=== PATIENT | female | born 1930 | race Caucasian/White ===

== ENCOUNTER 2018-10-19 20:18 | Inpatient (IN) | payer MEDICARE, OTHER ==
[2018-10-19 21:20] LABS: WHITE BLOOD COUNT 28.9 10^3/ul (4.8-10.8)
[2018-10-19 21:20] LABS: ABNORMAL IP MESSAGE 1; HEMATOCRIT 37.7 % (37.0-47.0); HEMOGLOBIN 12.4 g/dl (12.0-16.0); MEAN CORPUSCULAR HEMOGLOBIN 29.1 pg (29.0-33.0); MEAN CORPUSCULAR HGB CONC 32.9 g/dl (32.0-37.0); MEAN CORPUSCULAR VOLUME 88.5 fl (82.0-101.0); MEAN PLATELET VOLUME 9.4 fl (7.4-10.4); PLATELET COUNT 447 10^3/UL (140-415); RED BLOOD COUNT 4.26 10^6/ul (4.20-5.40); RED CELL DISTRIBUTION WIDTH 14.5 % (11.5-14.5)
[2018-10-19] MEDS: SODIUM CHLORIDE 0.9% 1L BAG IV* (21:25)
[2018-10-19] MEDS: CEFTRIAXONE 1 GM/50 ML (PMX) 50 ML IVPB (21:26)
[2018-10-19 21:35] LABS: ADD MAN DIFF? YES; PATH REVIEW? YES; POSITIVE DIFF @See below
[2018-10-19 21:38] LABS: INR 1.14; PROTIME 14.7 Sec (11.9-14.9); PT RATIO 1.1
[2018-10-19 21:39] LABS: PARTIAL THROMBOPLASTIN TIME 38.3 Sec (23.0-35.0)
[2018-10-19 21:41] LABS: ALBUMIN 3.6 g/dl (3.3-4.9); ALKALINE PHOSPHATASE 147 IU/L (42-121); ANION GAP 13 (5-13); ASPARTATE AMINO TRANSFERASE 19 IU/L (15-46); BILIRUBIN,INDIRECT 0.5 mg/dl (0-1.1); BILIRUBIN,TOTAL 0.5 mg/dl (0.2-1.3); BLOOD UREA NITROGEN 22 mg/dl (7-20); CARBON DIOXIDE 24 mmol/L (21-31); CHLORIDE 104 mmol/L (97-110); CREATININE 0.98 mg/dl (0.44-1.00); GLUCOSE 141 mg/dl (70-220); POTASSIUM 4.3 mmol/L (3.5-5.1); SODIUM 141 mmol/L (135-144); TOTAL PROTEIN 7.6 g/dl (6.1-8.1)
[2018-10-19] MEDS: morphine 2 MG INJ IV (21:42)
[2018-10-19] MEDS: AZITHROMYCIN 500MG/NS (PMX) 250 ML IV (21:43)
[2018-10-19 21:48] LABS: ALANINE AMINOTRANSFERASE < 6 IU/L (13-69)
[2018-10-19 21:51] LABS: B-TYPE NATRIURETIC PEPTIDE 1300 PG/ML (0-450)
[2018-10-19 21:57] LABS: ADD UMIC YES; UR ASCORBIC ACID 40 mg/dL (NEGATIVE); UR BACTERIA FEW /HPF (NONE SEEN); UR BILIRUBIN (Dip) NEGATIVE (NEGATIVE); UR BLOOD (Dip) NEGATIVE (NEGATIVE); UR CLARITY TURBID (CLEAR); UR COLOR YELLOW (YELLOW); UR GLUCOSE (Dip) NEGATIVE (NEGATIVE); UR KETONES (Dip) TRACE mg/dL (NEGATIVE); UR LEUKOCYTE ESTERASE (Dip) 2+ Leu/ul (NEGATIVE); UR MUCUS MANY /HPF (NONE SEEN); UR NITRITE (Dip) NEGATIVE (NEGATIVE); UR RBC 3 /HPF (0-5); UR SPECIFIC GRAVITY (Dip) 1.035 (1.003-1.030); UR TOTAL PROTEIN (Dip) 2+ mg/dl (NEGATIVE); UR UROBILINOGEN (Dip) NEGATIVE (NEGATIVE); UR WBC > 182 /HPF (0-5)
[2018-10-19 22:17] LABS: ANISOCYTOSIS 1+ (0-0); BAND NEUTROPHILS % (M) 7 % (0-4); LYMPHOCYTES #M 1.7 10^3/ul (0.8-2.9); LYMPHOCYTES % (M) 6 % (15-51); MONOCYTE #M 1.7 10^3/ul (0.3-0.9); MONOCYTES % (M) 6 % (0-11); SEGMENTED NEUTROPHILS (M) % 81 % (39-77); SMUDGE%M 5 % (0-0)
[2018-10-19 23:36] LABS: LACTIC ACID 1.7 mmol/L (0.5-2.0)
[2018-10-20] MEDS ORDERED: ONDANSETRON 4 MG INJ IV ×2 (00:30→02:00)
[2018-10-20] MEDS ORDERED: ACETAMINOPHEN 325 MG TAB PO ×2 (00:30→02:00)
[2018-10-20 00:51] LABS: LACTIC ACID 1.1 mmol/L (0.5-2.0)
[2018-10-20] MEDS: SOD CHLORIDE 0.9% 1,000 ML IV ×2 (01:51→15:12)
[2018-10-20] MEDS: SOD CHLORIDE 0.9% 250 ML IV (01:54)
[2018-10-20] MEDS ORDERED: VANCOMYCIN IV PER PHARMACY XX (02:00)
[2018-10-20] MEDS ORDERED: ALBUTEROL/IPRATROPIUM (NEB) 3 ML AMP HHN (02:00)
[2018-10-20] MEDS ORDERED: NACL 0.9% 3 ML SYG IV (02:00)
[2018-10-20] MEDS: VANCOMYCIN 1 GM in 250 ML IVPB (03:37)
[2018-10-20 06:44] LABS: ADD MAN DIFF? NO
[2018-10-20 06:48] LABS: WHITE BLOOD COUNT 19.4 10^3/ul (4.8-10.8)
[2018-10-20 06:48] LABS: BASOPHILS % 0.2 % (0.0-2.0); EOSINOPHILS % 0.1 % (0.0-7.0); LYMPHOCYTES # 1.7 10^3/ul (0.8-2.9); LYMPHOCYTES % 8.6 % (15.0-51.0); MEAN CORPUSCULAR HEMOGLOBIN 28.7 pg (29.0-33.0); MEAN CORPUSCULAR HGB CONC 31.3 g/dl (32.0-37.0); MEAN PLATELET VOLUME 9.7 fl (7.4-10.4); MONOCYTE # 1.1 10^3/ul (0.3-0.9); MONOCYTES % 5.7 % (0.0-11.0); NEUTROPHIL # 16.4 10^3/ul (1.6-7.5); NEUTROPHILS % 84.7 % (39.0-77.0); PLATELET COUNT 307 10^3/UL (140-415); RED BLOOD COUNT 3.48 10^6/ul (4.20-5.40); RED CELL DISTRIBUTION WIDTH 14.6 % (11.5-14.5)
[2018-10-20 07:14] LABS: ALANINE AMINOTRANSFERASE 17 IU/L (13-69); ALBUMIN 2.6 g/dl (3.3-4.9); ALBUMIN/GLOBULIN RATIO 0.86; ALKALINE PHOSPHATASE 98 IU/L (42-121); ANION GAP 4 (5-13); ASPARTATE AMINO TRANSFERASE 16 IU/L (15-46); BILIRUBIN,INDIRECT 0.3 mg/dl (0-1.1); BILIRUBIN,TOTAL 0.3 mg/dl (0.2-1.3); BLOOD UREA NITROGEN 21 mg/dl (7-20); CALCIUM 7.9 mg/dl (8.4-10.2); CARBON DIOXIDE 28 mmol/L (21-31); CHLORIDE 111 mmol/L (97-110); CHOL/HDL RATIO 4.6 RATIO; CHOLESTEROL 93 mg/dl (100-200); CREATININE 0.79 mg/dl (0.44-1.00); GLUCOSE 98 mg/dl (70-220); HDL CHOLESTEROL 20 mg/dl (33-92); LDL CHOLESTEROL,CALCULATED 57 mg/dl; POTASSIUM 4.1 mmol/L (3.5-5.1); SODIUM 143 mmol/L (135-144); TOTAL PROTEIN 5.6 g/dl (6.1-8.1); TRIGLYCERIDES 82 mg/dl (0-149)
[2018-10-20] MEDS: clonAZEPAM 0.5 MG TAB PO ×2 (09:00→21:00)
[2018-10-20] MEDS: ESCITALOPRAM 10 MG TAB PO (09:00)
[2018-10-20] MEDS: HEPARIN 5,000 UNIT/1 ML VIAL SC ×2 (11:16→21:00)
[2018-10-20] MEDS: FUROSEMIDE 40 MG INJ IV (17:10)
[2018-10-20] MEDS: BALSAM PERU/CASTOR OIL 60 GM TUBE TOP (20:53)
[2018-10-20] MEDS: ACETAMINOPHEN 650 MG SUPP PR (20:54)
[2018-10-20] MEDS: MIRTAZAPINE 15 MG TAB PO (21:00)
[2018-10-20] MEDS ORDERED: NON-FORMULARY/PATIENT OWN MED (Lovastatin 40 MG) PO (21:00)
[2018-10-20] MEDS: ATORVASTATIN 10 MG TAB PO (21:00)
[2018-10-20] MEDS: OLANZAPINE 5 MG TAB PO (21:00)
[2018-10-21] MEDS: IPRATROPIUM (NEB) 0.5 MG/2.5 ML AMP HHN ×4 (01:02→21:27)
[2018-10-21] MEDS: VANCOMYCIN 750 MG (PMX) 250 ML IVPB (01:55)
[2018-10-21 06:04] LABS: ADD MAN DIFF? NO
[2018-10-21 06:07] LABS: BASOPHILS % 0.2 % (0.0-2.0); EOSINOPHILS # 0.1 10^3/ul (0.0-0.5); EOSINOPHILS % 0.6 % (0.0-7.0); HEMATOCRIT 31.7 % (37.0-47.0); HEMOGLOBIN 9.9 g/dl (12.0-16.0); LYMPHOCYTES # 1.3 10^3/ul (0.8-2.9); MEAN CORPUSCULAR HEMOGLOBIN 28.6 pg (29.0-33.0); MEAN CORPUSCULAR HGB CONC 31.2 g/dl (32.0-37.0); MEAN CORPUSCULAR VOLUME 91.6 fl (82.0-101.0); MEAN PLATELET VOLUME 9.5 fl (7.4-10.4); MONOCYTE # 1.1 10^3/ul (0.3-0.9); MONOCYTES % 6.1 % (0.0-11.0); NEUTROPHIL # 15.5 10^3/ul (1.6-7.5); NEUTROPHILS % 85.3 % (39.0-77.0); PLATELET COUNT 309 10^3/UL (140-415); RED BLOOD COUNT 3.46 10^6/ul (4.20-5.40); RED CELL DISTRIBUTION WIDTH 14.6 % (11.5-14.5)
[2018-10-21 06:07] LABS: WHITE BLOOD COUNT 18.1 10^3/ul (4.8-10.8)
[2018-10-21] MEDS: SOD CHLORIDE 0.9% 1,000 ML IV (06:20)
[2018-10-21 06:40] LABS: ANION GAP 5 (5-13); BLOOD UREA NITROGEN 19 mg/dl (7-20); CALCIUM 7.9 mg/dl (8.4-10.2); CARBON DIOXIDE 29 mmol/L (21-31); CHLORIDE 112 mmol/L (97-110); CREATININE 0.69 mg/dl (0.44-1.00); GLUCOSE 90 mg/dl (70-220); MAGNESIUM 2.2 mg/dl (1.7-2.5); PHOSPHORUS 4.4 mg/dl (2.5-4.9); POTASSIUM 3.6 mmol/L (3.5-5.1); SODIUM 146 mmol/L (135-144)
[2018-10-21] MEDS: ESCITALOPRAM 10 MG TAB PO (09:00)
[2018-10-21] MEDS: HEPARIN 5,000 UNIT/1 ML VIAL SC (09:00)
[2018-10-21] MEDS: BALSAM PERU/CASTOR OIL 60 GM TUBE TOP (09:22)
[2018-10-21] MEDS: D5W-0.45 NACL + KCL 20 MEQ 1,000 ML IV (12:25)
[2018-10-21] MEDS: PIPER-TAZO 3.375 GM IV (PMX) 100 ML IVPB ×2 (14:26→20:54)
[2018-10-21] MEDS: ACETAMINOPHEN 650 MG SUPP PR (20:17)
[2018-10-21] MEDS: ATORVASTATIN 10 MG TAB PO (20:41)
[2018-10-21] MEDS: MIRTAZAPINE 15 MG TAB PO (20:42)
[2018-10-22] MEDS: IPRATROPIUM (NEB) 0.5 MG/2.5 ML AMP HHN ×4 (02:18→20:41)
[2018-10-22] MEDS: VANCOMYCIN 750 MG (PMX) 250 ML IVPB (02:29)
[2018-10-22] MEDS: LORAZEPAM 2 MG INJ IV (04:30)
[2018-10-22] MEDS: HALOPERIDOL 5 MG INJ IM (04:38)
[2018-10-22] MEDS: PIPER-TAZO 3.375 GM IV (PMX) 100 ML IVPB ×3 (05:40→21:16)
[2018-10-22 06:00] LABS: ADD MAN DIFF? NO
[2018-10-22 06:11] LABS: ABNORMAL IP MESSAGE 1; BASOPHILS % 0.2 % (0.0-2.0); EOSINOPHILS # 0.1 10^3/ul (0.0-0.5); EOSINOPHILS % 0.3 % (0.0-7.0); HEMATOCRIT 31.7 % (37.0-47.0); HEMOGLOBIN 10.3 g/dl (12.0-16.0); LYMPHOCYTES # 1.1 10^3/ul (0.8-2.9); LYMPHOCYTES % 4.7 % (15.0-51.0); MEAN CORPUSCULAR HEMOGLOBIN 28.8 pg (29.0-33.0); MEAN CORPUSCULAR HGB CONC 32.5 g/dl (32.0-37.0); MEAN CORPUSCULAR VOLUME 88.5 fl (82.0-101.0); MEAN PLATELET VOLUME 9.2 fl (7.4-10.4); MONOCYTE # 1.2 10^3/ul (0.3-0.9); MONOCYTES % 5.1 % (0.0-11.0); NEUTROPHIL # 20.6 10^3/ul (1.6-7.5); NEUTROPHILS % 88.2 % (39.0-77.0); NUCLEATED RED BLOOD CELLS% 0.1 /100WBC (0.0-0.0); PLATELET COUNT 374 10^3/UL (140-415); RED BLOOD COUNT 3.58 10^6/ul (4.20-5.40); RED CELL DISTRIBUTION WIDTH 14.6 % (11.5-14.5)
[2018-10-22 06:11] LABS: WHITE BLOOD COUNT 23.4 10^3/ul (4.8-10.8)
[2018-10-22 06:13] LABS: POSITIVE DIFF @See below
[2018-10-22 06:32] LABS: INR 1.22; PROTIME 15.5 Sec (11.9-14.9); PT RATIO 1.2
[2018-10-22 06:55] LABS: ALANINE AMINOTRANSFERASE 10 IU/L (13-69); ALBUMIN 2.8 g/dl (3.3-4.9); ALKALINE PHOSPHATASE 118 IU/L (42-121); ANION GAP 6 (5-13); ASPARTATE AMINO TRANSFERASE 24 IU/L (15-46); BILIRUBIN,INDIRECT 0.4 mg/dl (0-1.1); BILIRUBIN,TOTAL 0.4 mg/dl (0.2-1.3); BLOOD UREA NITROGEN 13 mg/dl (7-20); CALCIUM 8.2 mg/dl (8.4-10.2); CARBON DIOXIDE 29 mmol/L (21-31); CHLORIDE 114 mmol/L (97-110); CREATININE 0.61 mg/dl (0.44-1.00); GLUCOSE 122 mg/dl (70-220); MAGNESIUM 2.3 mg/dl (1.7-2.5); PHOSPHORUS 2.8 mg/dl (2.5-4.9); POTASSIUM 3.1 mmol/L (3.5-5.1); SODIUM 149 mmol/L (135-144); TOTAL PROTEIN 5.9 g/dl (6.1-8.1)
[2018-10-22] MEDS: D5W-0.45 NACL + KCL 20 MEQ 1,000 ML IV ×2 (07:30→15:25)
[2018-10-22] MEDS: FAMOTIDINE 20 MG INJ IV ×2 (08:49→20:53)
[2018-10-22] MEDS: ESCITALOPRAM 10 MG TAB PO (08:49)
[2018-10-22] MEDS: BALSAM PERU/CASTOR OIL 60 GM TUBE TOP (08:50)
[2018-10-22] MEDS: HEPARIN 5,000 UNIT/1 ML VIAL SC ×2 (09:03→21:07)
[2018-10-22] MEDS: CLONIDINE 0.2 MG/24 HR PATCH TRANSDERM (16:07)
[2018-10-22] MEDS: ENALAPRILAT 1.25 MG INJ IV (20:53)
[2018-10-22] MEDS: ATORVASTATIN 10 MG TAB PO (21:00)
[2018-10-22] MEDS: MIRTAZAPINE 15 MG TAB PO (21:00)
[2018-10-22] MEDS: OLANZAPINE 5 MG TAB PO (21:00)
[2018-10-23] MEDS: IPRATROPIUM (NEB) 0.5 MG/2.5 ML AMP HHN ×4 (01:38→20:33)
[2018-10-23 01:52] LABS: VANCOMYCIN,TROUGH 5.5 ug/ml (10.0-20.0)
[2018-10-23] MEDS: VANCOMYCIN 750 MG (PMX) 250 ML IVPB ×2 (02:25→15:14)
[2018-10-23] MEDS: D5W-0.45 NACL + KCL 20 MEQ 1,000 ML IV ×2 (03:30→22:27)
[2018-10-23] MEDS: PIPER-TAZO 3.375 GM IV (PMX) 100 ML IVPB ×3 (05:37→22:29)
[2018-10-23 08:43] LABS: ADD MAN DIFF? NO
[2018-10-23 08:48] LABS: ABNORMAL IP MESSAGE 1; BASOPHIL # 0.1 10^3/ul (0.0-0.1); BASOPHILS % 0.2 % (0.0-2.0); HEMATOCRIT 29.8 % (37.0-47.0); HEMOGLOBIN 9.5 g/dl (12.0-16.0); LYMPHOCYTES # 1.1 10^3/ul (0.8-2.9); LYMPHOCYTES % 4.6 % (15.0-51.0); MEAN CORPUSCULAR HEMOGLOBIN 29.1 pg (29.0-33.0); MEAN CORPUSCULAR HGB CONC 31.9 g/dl (32.0-37.0); MEAN CORPUSCULAR VOLUME 91.1 fl (82.0-101.0); MEAN PLATELET VOLUME 9.8 fl (7.4-10.4); MONOCYTE # 1.2 10^3/ul (0.3-0.9); MONOCYTES % 5.1 % (0.0-11.0); NEUTROPHIL # 20.9 10^3/ul (1.6-7.5); NEUTROPHILS % 89.2 % (39.0-77.0); PLATELET COUNT 333 10^3/UL (140-415); RED BLOOD COUNT 3.27 10^6/ul (4.20-5.40); RED CELL DISTRIBUTION WIDTH 14.9 % (11.5-14.5)
[2018-10-23 08:48] LABS: WHITE BLOOD COUNT 23.4 10^3/ul (4.8-10.8)
[2018-10-23 08:58] LABS: POSITIVE DIFF @See below
[2018-10-23] MEDS: ESCITALOPRAM 10 MG TAB PO (09:00)
[2018-10-23 09:06] LABS: ALANINE AMINOTRANSFERASE 12 IU/L (13-69); ALBUMIN 2.5 g/dl (3.3-4.9); ALBUMIN/GLOBULIN RATIO 0.78; ALKALINE PHOSPHATASE 118 IU/L (42-121); ANION GAP 3 (5-13); ASPARTATE AMINO TRANSFERASE 19 IU/L (15-46); BILIRUBIN,INDIRECT 0.4 mg/dl (0-1.1); BILIRUBIN,TOTAL 0.4 mg/dl (0.2-1.3); BLOOD UREA NITROGEN 13 mg/dl (7-20); CALCIUM 7.9 mg/dl (8.4-10.2); CARBON DIOXIDE 31 mmol/L (21-31); CHLORIDE 116 mmol/L (97-110); CREATININE 0.64 mg/dl (0.44-1.00); GLUCOSE 130 mg/dl (70-220); MAGNESIUM 2.3 mg/dl (1.7-2.5); POTASSIUM 3.4 mmol/L (3.5-5.1); SODIUM 150 mmol/L (135-144); TOTAL PROTEIN 5.7 g/dl (6.1-8.1)
[2018-10-23] MEDS: FAMOTIDINE 20 MG INJ IV ×2 (09:09→20:19)
[2018-10-23] MEDS: BALSAM PERU/CASTOR OIL 60 GM TUBE TOP (09:09)
[2018-10-23] MEDS: HEPARIN 5,000 UNIT/1 ML VIAL SC ×2 (09:11→20:49)
[2018-10-23] MEDS: ACETAMINOPHEN 650 MG SUPP PR (20:14)
[2018-10-23] MEDS: ENALAPRILAT 1.25 MG INJ IV (20:19)
[2018-10-23] MEDS: ATORVASTATIN 10 MG TAB PO (21:00)
[2018-10-23] MEDS: MIRTAZAPINE 15 MG TAB PO (21:00)
[2018-10-23] MEDS: OLANZAPINE 5 MG TAB PO (21:00)
[2018-10-24] MEDS: VANCOMYCIN 750 MG (PMX) 250 ML IVPB ×2 (01:23→13:48)
[2018-10-24] MEDS: IPRATROPIUM (NEB) 0.5 MG/2.5 ML AMP HHN ×4 (01:38→19:43)
[2018-10-24] MEDS: ENALAPRILAT 1.25 MG INJ IV (04:05)
[2018-10-24] MEDS: PIPER-TAZO 3.375 GM IV (PMX) 100 ML IVPB ×3 (05:08→20:11)
[2018-10-24] MEDS: DILTIAZEM-D5W 125MG/125ML DRIP 125 ML IV ×3 (05:59→06:30)
[2018-10-24] MEDS: METOPROLOL 5 MG INJ IV (06:37)
[2018-10-24 07:00] LABS: ABNORMAL IP MESSAGE 1; HEMATOCRIT 32.3 % (37.0-47.0); HEMOGLOBIN 10.3 g/dl (12.0-16.0); MEAN CORPUSCULAR HEMOGLOBIN 28.9 pg (29.0-33.0); MEAN CORPUSCULAR HGB CONC 31.9 g/dl (32.0-37.0); MEAN CORPUSCULAR VOLUME 90.5 fl (82.0-101.0); MEAN PLATELET VOLUME 9.7 fl (7.4-10.4); PLATELET COUNT 425 10^3/UL (140-415); RED BLOOD COUNT 3.57 10^6/ul (4.20-5.40)
[2018-10-24 07:02] LABS: POSITIVE DIFF @See below
[2018-10-24 07:03] LABS: ADD MAN DIFF? YES
[2018-10-24 07:17] LABS: PHOSPHORUS 3.1 mg/dl (2.5-4.9)
[2018-10-24 07:17] LABS: MAGNESIUM 2.2 mg/dl (1.7-2.5)
[2018-10-24 07:25] LABS: ANION GAP 5 (5-13); BLOOD UREA NITROGEN 16 mg/dl (7-20); CALCIUM 8.3 mg/dl (8.4-10.2); CARBON DIOXIDE 31 mmol/L (21-31); CHLORIDE 116 mmol/L (97-110); CREATININE 0.67 mg/dl (0.44-1.00); GLUCOSE 151 mg/dl (70-220); POTASSIUM 3.1 mmol/L (3.5-5.1); SODIUM 152 mmol/L (135-144)
[2018-10-24 07:32] LABS: LYMPHOCYTES #M 1.4 10^3/ul (0.8-2.9); LYMPHOCYTES % (M) 5 % (15-51); MONOCYTE #M 1.1 10^3/ul (0.3-0.9); MONOCYTES % (M) 4 % (0-11); PLATELET ESTIMATE INCREASED; SEGMENTED NEUTROPHILS (M) % 91 % (39-77)
[2018-10-24] MEDS: D5W-0.45 NACL + KCL 20 MEQ 1,000 ML IV (08:17)
[2018-10-24] MEDS: FAMOTIDINE 20 MG INJ IV ×2 (08:18→20:10)
[2018-10-24] MEDS: BALSAM PERU/CASTOR OIL 60 GM TUBE TOP (08:20)
[2018-10-24] MEDS: ESCITALOPRAM 10 MG TAB PO (08:20)
[2018-10-24] MEDS: HEPARIN 5,000 UNIT/1 ML VIAL SC ×2 (08:37→20:37)
[2018-10-24] MEDS: POTASSIUM CHLORIDE 100 ML IVPB ×2 (10:13→11:27)
[2018-10-24 13:34] LABS: VANCOMYCIN,TROUGH 14.2 ug/ml (10.0-20.0)
[2018-10-24] MEDS: ATORVASTATIN 10 MG TAB PO (20:10)
[2018-10-24] MEDS: MIRTAZAPINE 15 MG TAB PO (20:11)
[2018-10-24] MEDS: OLANZAPINE 5 MG TAB PO (20:11)
[2018-10-25] MEDS: IPRATROPIUM (NEB) 0.5 MG/2.5 ML AMP HHN (01:21)
[2018-10-25] MEDS: VANCOMYCIN 750 MG (PMX) 250 ML IVPB (03:26)
[2018-10-25] MEDS: D5W-0.45 NACL + KCL 20 MEQ 1,000 ML IV (03:26)
[2018-10-25] MEDS: PIPER-TAZO 3.375 GM IV (PMX) 100 ML IVPB (05:21)
[2018-10-25] MEDS: DILTIAZEM 25 MG INJ IV ×2 (06:24→06:45)
[2018-10-25] MEDS: MAGNESIUM SULFATE 2 GM/50 ML 50 ML IVPB (06:25)
[2018-10-25] MEDS ORDERED: DILTIAZEM 125 MG in SOD CHLORIDE 0.9% 100 ML IV (08:00)
[2018-10-25] MEDS ORDERED: DILTIAZEM-D5W 125MG/125ML DRIP 125 ML IV ×2 (08:00)
[2018-10-25 08:40] LABS: ANION GAP 10 (5-13); BLOOD UREA NITROGEN 16 mg/dl (7-20); CALCIUM 8.4 mg/dl (8.4-10.2); CARBON DIOXIDE 30 mmol/L (21-31); CHLORIDE 112 mmol/L (97-110); CREATININE 0.69 mg/dl (0.44-1.00); GLUCOSE 140 mg/dl (70-220); MAGNESIUM 2.2 mg/dl (1.7-2.5); POTASSIUM 3.4 mmol/L (3.5-5.1); SODIUM 152 mmol/L (135-144)
[2018-10-25 09:10] LABS: THYROID STIMULATING HORMONE 0.185 MIU/L (0.465-4.680)
[2018-10-25] MEDS: morphine (DRIP) 100 MG/100 ML 100 ML IV (09:41)
[2018-10-25] MEDS: LORAZEPAM 2 MG INJ IV (12:51)
[2018-10-25] MEDS: SCOPOLAMINE 1.5 MG PATCH TRANSDERM (12:52)
[2018-10-25] MEDS: ATROPINE SULFATE 1% 5ML SL (18:42)
== END 2018-10-26 00:37 | disposition expired | DRG 871 ==
LOC: TEL 10-20 00:11 → E/R 20:18 → MS1 10-25 12:15
PROVIDERS: Internal Medicine
PROC: 5A09357 Assistance with Respiratory Ventilation, Less than 24 Consecutive Hours, Continuous Positive Airway Pressure (ICD-10-PCS; principal; 2018-10-25)
DX: A41.9 Sepsis, unspecified organism (principal); J18.9 Pneumonia, unspecified organism; J96.01 Acute respiratory failure with hypoxia; G92 Toxic encephalopathy; N39.0 Urinary tract infection, site not specified; E87.0 Hyperosmolality and hypernatremia; E44.0 Moderate protein-calorie malnutrition; R65.20 Severe sepsis without septic shock; Z66 Do not resuscitate; Z68.24 Body mass index [BMI] 24.0-24.9, adult; G30.8 Other Alzheimer's disease; F02.80 Dementia in other diseases classified elsewhere, unspecified severity, without behavioral disturbance, psychotic disturbance, mood disturbance, and anxiety; R13.10 Dysphagia, unspecified
CPT/HCPCS: 71045; 71250; 76604; 76642; 80048; 80053; 80061; 80202; 81001; 83605; 83735; 83880; 84100; 84443; 84484; 85025; 85610; 85730; 87040-91; 87086; 93005; 94640; 94660; 94664; 96374; 96375; 99285-25